=== PATIENT | female | born 1985 | race Caucasian/White ===

== ENCOUNTER → 2016-11-20 | Outpatient (CLI) | payer BC | LOC: LAB 19:18 | DX: J11.1 Influenza due to unidentified influenza virus with other respiratory manifestations (principal) ==

== ENCOUNTER → 2016-12-26 | Outpatient (CLI) | payer BC | LOC: LAB 07:20 | DX: Z01.419 Encounter for gynecological examination (general) (routine) without abnormal findings (principal) | CPT/HCPCS: 36415; 80074; 84439; 84443; 84480; 87390 ==

== ENCOUNTER → 2017-02-05 | Outpatient (CLI) | payer BC ==
[2017-02-05 17:02] LABS: HEMOGLOBIN 12.8 gm/dl (12.3-15.3); RED BLOOD COUNT 4.49 M/UL (4.00-5.10); WHITE BLOOD COUNT 7.7 K/UL (4.5-11.0)
[2017-02-05 17:26] LABS: BUN/CREATININE RATIO 15 (0-10)
== END ==
LOC: LAB 16:32
PROVIDERS: Internal Medicine
DX: R19.8 Other specified symptoms and signs involving the digestive system and abdomen (principal); R19.7 Diarrhea, unspecified; E55.9 Vitamin D deficiency, unspecified; K21.0 Gastro-esophageal reflux disease with esophagitis; R63.5 Abnormal weight gain
CPT/HCPCS: 36415; 80053; 80061; 82607; 82746; 82784; 85025

== ENCOUNTER → 2021-12-07 | Day surgery (SDC) | payer OTHER ==
[~2021-12-07] VITALS: Ht 167.6 cm; Wt 97.1 kg
[~2021-12-07] MED LIST: ADDERALL 10 MG10 MG PO; DOXY 100100 MG IV; FLUOXETINE HCL40 MG PO; IBU800 MG PO; LAMICTAL200 MG PO; TRI-SPRINTEC T1 EACH PO; TYLENOL325 MG PO; VYVANSE40 MG PO
== END | disposition home or self-care (01) ==
LOC: OR 05:40
DX: L60.0 Ingrowing nail (principal); M72.2 Plantar fascial fibromatosis; Z20.822 Contact with and (suspected) exposure to COVID-19
CPT/HCPCS: 84703; J0690; J1100; J1170; J1885; J2250; J2405; J2704; J2795; J3010; J3301; J3370; J7120